=== PATIENT | female | born 1960 | race Asian ===

== ENCOUNTER 2019-03-14 10:10 | Emergency (ER) | payer SELFPAY ==
[~2019-03-14] VITALS: Ht 147.3 cm; Wt 59.1 kg
[~2019-03-14 10:10] MED LIST: ASPI-1182 PO; ATOR20TA86 PO; LOSA50TA64 PO; METF-960 PO; OMEP20 PO
[2019-03-14 11:07] LABS: INFLUENZA TYPE A NEGATIVE FOR TYPE A (NEGATIVE); INFLUENZA TYPE B NEGATIVE FOR TYPE B (NEGATIVE)
[2019-03-14 12:38] VITALS: BP 141/81
== END 2019-03-14 12:46 | disposition home or self-care (01) ==
LOC: EMS 10:12
DX: J11.1 Influenza due to unidentified influenza virus with other respiratory manifestations (principal); I10 Essential (primary) hypertension; E11.9 Type 2 diabetes mellitus without complications; E78.00 Pure hypercholesterolemia, unspecified; Z88.8 Allergy status to other drugs, medicaments and biological substances; Z79.82 Long term (current) use of aspirin; Z79.84 Long term (current) use of oral hypoglycemic drugs; Z79.899 Other long term (current) drug therapy
CPT/HCPCS: 87804

== ENCOUNTER → 2019-11-20 | Outpatient (CLI) | payer OTHER ==
[~2019-11-20] MED LIST changes: +ASPI-1111 PO; -ASPI-1182 PO; +LOSA50TA37 PO; -LOSA50TA64 PO
== END | disposition home or self-care (01) ==
LOC: EMS 11:31
PROVIDERS: ATTEND Internal Medicine
DX: Z20.828 Contact with and (suspected) exposure to other viral communicable diseases (principal)
CPT/HCPCS: 87426; U0003

== ENCOUNTER → 2019-12-06 | Outpatient (CLI) | payer OTHER | END | disposition home or self-care (01) | LOC: EMS 15:19 | DX: Z20.828 Contact with and (suspected) exposure to other viral communicable diseases (principal) | CPT/HCPCS: U0003-CS ==

== ENCOUNTER 2024-07-20 17:30 | Emergency (ER) | payer OTHER ==
[~2024-07-20] VITALS: Ht 147.3 cm; Wt 56.8 kg
[~2024-07-20 17:30] MED LIST changes: -ASPI-1111 PO; +ASPI-1444 PO; +ATOR20TA PO; -ATOR20TA86 PO; +LOSA-382 PO; -LOSA50TA37 PO; +METF-1211 PO; -METF-960 PO; +OMEP-148 PO; -OMEP20 PO
[2024-07-20 17:35] VITALS: BP 147/79; PULSE 92; RESP 18; TEMP 98; O2SAT 99
[2024-07-20] MEDS ORDERED: CALC-1271 PO (17:42)
[2024-07-20] MEDS ORDERED: LOSA-381 PO (17:42)
[2024-07-20] MEDS ORDERED: LEVO100 PO (17:42)
[2024-07-20] MEDS ORDERED: METF-446 PO (17:42)
[2024-07-20] MEDS ORDERED: PANT40TA54 PO (17:42)
[2024-07-20] MEDS ORDERED: ATOR20TA65 PO (17:42)
[2024-07-20] MEDS ORDERED: HYDR25TA PO (17:42)
== END 2024-07-20 18:08 | disposition home or self-care (01) ==
LOC: EMS 17:30
DX: S20.319A Abrasion of unspecified front wall of thorax, initial encounter (principal); I10 Essential (primary) hypertension; E11.9 Type 2 diabetes mellitus without complications; E78.00 Pure hypercholesterolemia, unspecified; Z88.8 Allergy status to other drugs, medicaments and biological substances; Z79.82 Long term (current) use of aspirin; Z79.84 Long term (current) use of oral hypoglycemic drugs; Z98.51 Tubal ligation status; Z79.899 Other long term (current) drug therapy; X58.XXXA Exposure to other specified factors, initial encounter; Y93.89 Activity, other specified; Y92.89 Other specified places as the place of occurrence of the external cause; Y99.0 Civilian activity done for income or pay
CPT/HCPCS: 99282; Z7502